=== PATIENT | female | born 1970 | race Hispanic/Latino ===

== ENCOUNTER 2017-10-26 18:18 | Emergency (ER) | payer BC ==
[2017-10-26 21:00] LABS: Absolute Lymphocytes (CBC) 2.8 K/uL (0.7-4.9); Absolute Monocytes 0.5 K/uL (0.1-1.3); Absolute Neutrophil 5.3 K/uL (1.8-8.0); Basophils % 0.6 % (0-1.3); Eosinophils % 3.3 % (0-4.4); Hematocrit 39.6 % (36.0-45.0); Lymphocytes % 31.6 % (15.3-44.8); MCH 29.9 pg (27.0-35.0); MCV 86.6 fL (80-100); MPV 7.7 fL (7.6-11.3); Monocytes % 5.2 % (3.3-12.3); RBC Red Blood Cell Count 4.58 M/uL (3.86-4.86)
[2017-10-26 21:04] LABS: Protime INR 0.98
[2017-10-26 21:09] LABS: Urine Blood NEGATIVE (NEG); Urine Glucose NEGATIVE (NEG); Urine Protein NEGATIVE (NEG); Urine Specific Gravity 1.025 (1.005-1.030)
[2017-10-26 21:09] LABS: Albumin 3.7 g/dL (3.4-5.0); Bilirubin Direct 0.1 mg/dL (0-0.2); Bilirubin Total 0.4 mg/dL (0.2-1.0); CKMB Creatine Kinase MB 1.1 ng/mL (0.3-3.6); Magnesium 2.7 mg/dL (1.8-2.4); Protein, Total 8.2 g/dL (6.4-8.2)
--- NOTE | 2017-10-26 21:14 | RAD REPORT ---
EXAM DESCRIPTION: RAD - Chest Single View - 10/26/2017 8:52 pm CLINICAL HISTORY: CHEST PAIN Chest pain. COMPARISON: CHEST SINGLE VIEW dated 12/20/2011 FINDINGS: Portable technique limits examination quality. The lungs are grossly clear. The heart is normal in size. No displaced fractures. IMPRESSION: No acute intrathoracic process suspected.
[2017-10-26] MEDS ORDERED: KETOROLAC 30 MG/ML INJ ONE (22:24)
--- NOTE | 2017-10-26 22:25 | EDPHYS ---
Physician Documentation [facility] Name: Rossy Grier Age: 47 yrs Sex: Female : 1970 Arrival Date: 10/26/2017 Time: 18:22 Bed 24 Private MD: ED Physician Brijesh Martinez HPI: 10/26 20:16 This 47 yrs old Female presents to ER via Ambulatory with complaints of Back jmm Pain. 20:16 The patient presents with pain that is acute, with no known mechanism of injury. The jmm symptoms are located in the mid back area, left flank and left mid back. Onset: The symptoms/episode began/occurred gradually, 1 day(s) ago. Associated signs and symptoms: Pertinent negatives: fever, vomiting. This is a 47 year old female with a history of htn that presents to the ED with left lateral chest wall pain. The pain does not radiate. Is worsened with deep inspiration. The pain is non exertional. 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 - Social history:: Smoking status: Patient/guardian denies using tobacco. - Ebola Screening: : Patient denies exposure to infectious person Patient denies travel to an Ebola-affected area in the 21 days before illness onset. ROS: 20:16 Constitutional: Negative for fever, chills, and weight loss, Cardiovascular: Negative jmm for chest pain, palpitations, and edema, Respiratory: Negative for shortness of breath, cough, wheezing, and pleuritic chest pain. 20:16 : Negative for injury, bleeding, discharge, and swelling, MS/Extremity: Negative for injury and deformity, Skin: Negative for injury, rash, and discoloration, Neuro: Negative for headache, weakness, numbness, tingling, and seizure. 20:16 Back: Positive for flank pain, on the left. 20:16 All other systems are negative. Exam: 20:16 Constitutional: This is a well developed, well nourished patient who is awake, alert, jmm and in no acute distress. Head/Face: atraumatic. 20:16 Chest/axilla: Inspection: normal. 20:16 Cardiovascular: Rate: normal, Rhythm: regular. 20:16 Respiratory: the patient does not display signs of respiratory distress, Respirations: normal, Breath sounds: are clear throughout. 20:16 Abdomen/GI: Inspection: abdomen appears normal, Bowel sounds: normal, Palpation: abdomen is soft and non-tender, in all quadrants. 20:16 Back: CVA tenderness, is absent, pain is localized lateral to the left scapula. 20:16 Musculoskeletal/extremity: ROM: intact in all extremities. 20:16 Skin: Appearance: Color: normal in color. 20:16 Neuro: Orientation: is normal, Mentation: is normal, Memory: is normal, Gait: is steady. 20:16 Psych: Behavior/mood is pleasant, cooperative, anxious. 20:50 ECG was reviewed by the Attending Physician. [facility] Vital Signs: 18:27 BP 158 / 97; Pulse 76; Resp 18; Temp 98.9(TE); Pulse Ox 97% on R/A; Weight 79.83 kg tw2 (R); Height 5 ft. 2 in. (157.48 cm); Pain 7/10; 21:08 BP 138 / 75; Pulse 72; Resp 15; Pulse Ox 97% on R/A; Pain 6/10; ed1 21:45 BP 120 / 78; Pulse 70; Resp 18; Pulse Ox 98% on R/A; Pain 6/10; ed1 22:30 BP 129 / 82; Pulse 73; Resp 17; Pulse Ox 100% on R/A; Pain 2/10; ed1 18:27 Body Mass Index 32.19 (79.83 kg, 157.48 cm) tw2 MDM: 20:14 Patient medically screened. [facility] 22:18 Data reviewed: vital signs, nurses notes. Counseling: I had a detailed discussion with [facility] the patient and/or guardian regarding: the historical points, exam findings, and any diagnostic results supporting the discharge/admit diagnosis, radiology results, the need for outpatient follow up, to return to the emergency department if symptoms worsen or persist or if there are any questions or concerns that arise at home. 22:26 ED course: HEART SCORE = 0 . ED course: D-DIMER NORMAL. ED course: Symptoms appear more jmm likely musculoskeletal. Patient has low likelihood of ACS, Vital signs normal. D-Dimer normal. I do not suspect PE. Patient given strict return precautions for chest pain, shortness of breath, fever, ect. Patient understood and agrees with the plan of care. . 10/26 20:14 Order name: Basic Metabolic Panel [facility] 10/26 20:14 Order name: CBC with Diff; Complete Time: 21:16 [facility] 10/26 20:14 Order name: Ckmb; Complete Time: 21:16 [facility] 10/26 20:14 Order name: CPK; Complete Time: 21:16 [facility] 10/26 20:14 Order name: LFT's; Complete Time: 21:16 [facility] 10/26 20:14 Order name: Magnesium; Complete Time: 21:16 [facility] 10/26 20:14 Order name: NT PRO-BNP; Complete Time: 21:16 [facility] 10/26 20:14 Order name: PT-INR; Complete Time: 21:16 [facility] 10/26 20:14 Order name: Ptt, Activated; Complete Time: 21:16 [facility] 10/26 20:14 Order name: Troponin (emerg Dept Use Only); Complete Time: 21:16 [facility] 10/26 20:14 Order name: Lipase; Complete Time: 21:16 [facility] 10/26 20:15 Order name: Basic Metabolic Panel; Complete Time: 21:16 [facility] 10/26 20:37 Order name: Urine Dipstick--Ancillary (enter results); Complete Time: 21:16 ks 10/26 20:37 Order name: Urine --Ancillary (enter results); Complete Time: 21:16 ks 10/26 20:14 Order name: XRAY Chest (1 view); Complete Time: 21:16 [facility] 10/26 20:14 Order name: EKG; Complete Time: 20:15 [facility] 10/26 20:14 Order name: Cardiac monitoring; Complete Time: 20:30 [facility] 10/26 20:14 Order name: EKG - Nurse/Tech; Complete Time: 20:44 [facility] 10/26 20:14 Order name: IV Saline Lock; Complete Time: 20:44 [facility] 10/26 20:14 Order name: Labs collected and sent; Complete Time: 20:45 [facility] 10/26 20:14 Order name: O2 Per Protocol; Complete Time: 20:30 jm 10/26 20:14 Order name: O2 Sat Monitoring; Complete Time: 20:30 [facility] 10/26 20:14 Order name: Urine Dipstick-Ancillary (obtain specimen); Complete Time: 20:29 [facility] 10/26 21:52 Order name: D-Dimer; Complete Time: 22:17 jmm EC:50 Rate is 69 beats/min. Rhythm is regular. QRS [place] is Normal. [place] interval is normal. QRS jmm interval is normal. QT interval is normal. T waves are Normal. No ST changes noted. Interpreted by me. Administered Medications: 22:24 Drug: Ketorolac 30 mg Route: IVP; Site: right forearm; bb 22:31 Follow up: Response: No adverse reaction; Pain is decreased ed1 Disposition: 10/27 07:26 Co-signature as Attending Physician, Brijesh Martinez MD I agree with the assessment and [facility] plan of care. Disposition: 10/26/17 22:24 Discharged to Home. Impression: Thoracic Strain. - Condition is Stable. - Discharge Instructions: Thoracic Strain. - Prescriptions for Ibuprofen 800 mg Oral Tablet - take 1 tablet by ORAL route every 12 hours As needed take with food; 20 tablet. orphenadrine citrate 100 mg Oral Tablet Sustained Release - take 1 tablet by ORAL route 2 times per day As needed; 20 tablet. - Medication Reconciliation Form, Thank You Letter, Antibiotic Education, Prescription Opioid Use form. - Follow up: Private Physician; When: 2 - 3 days; Reason: Recheck today's complaints, Continuance of care, Re-evaluation by your physician. Signatures: Dispatcher [employer] EDBrijesh Isabel MD MD cha Mickail, Joel, PA PA jmm Ballard, Brenda, RN RN bb Laura Marie, CUSTOMER EXPERIENCE ASSOCIATE CUSTOMER EXPERIENCE ASSOCIATE ed1 Elodia Asher RN RN tw2 Corrections: (The following items were deleted from the chart) 10/26 22:31 22:24 10/26/2017 22:24 Discharged to Home. Impression: Thoracic Strain. Condition is ed1 Stable. Forms are Medication Reconciliation Form, Thank You Letter, Antibiotic Education, Prescription Opioid Use. Follow up: Private Physician; When: 2 - 3 days; Reason: Recheck today's complaints, Continuance of care, Re-evaluation by your physician. cherie
--- NOTE | 2017-10-26 22:25 | ER ---
Nurse's Notes [facility] Name: Rossy Grier Age: 47 yrs Sex: Female : 1970 Arrival Date: 10/26/2017 Time: 18:22 Bed 24 Private MD: Diagnosis: Thoracic Strain Presentation: 10/26 18:26 Presenting complaint: Patient states: i have a pain on my left side and radiates to my tw2 back, my rib area when i breathe it hurts. Transition of care: patient was not received from another setting of care. Onset of symptoms was October 26, 2017. Risk Assessment: Do you want to hurt yourself or someone else? Patient reports no desire to harm self or others. Initial Sepsis Screen: Does the patient meet any 2 criteria? No. Patient's initial sepsis screen is negative. Does the patient have a suspected source of infection? No. Patient's initial sepsis screen is negative. Care prior to arrival: None. 18:26 Method Of Arrival: Ambulatory tw2 18:29 Acuity: MAMIE 3 tw2 Triage Assessment: 18:40 General: Appears in no apparent distress. well groomed, Behavior is calm, cooperative, tw2 appropriate for age. Pain: Complains of pain in LEFT rib area and back. Cardiovascular: Denies chest pain, shortness of breath, Patient's skin is warm and dry. Respiratory: Airway is patent Respiratory effort is even, unlabored, Respiratory pattern is regular, symmetrical. 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 - Social history:: Smoking status: Patient/guardian denies using tobacco. - Ebola Screening: : Patient denies exposure to infectious person Patient denies travel to an Ebola-affected area in the 21 days before illness onset. Screenin:41 Abuse screen: Denies threats or abuse. Nutritional screening: No deficits noted. tw2 Tuberculosis screening: No symptoms or risk factors identified. Fall Risk None identified. Assessment: 19:46 General: Appears uncomfortable, Behavior is calm, cooperative. Pain: Complains of pain ed1 in left lateral anterior chest Pain radiates to back Pain currently is 7 out of 10 on a pain scale. Quality of pain is described as aching, sharp, Pain began 1 day ago. Is continuous. Neuro: Level of Consciousness is awake, alert, obeys commands, Oriented to person, place, time, situation. Cardiovascular: Denies chest pain, Heart tones S1 S2 present. Respiratory: Airway is patent Respiratory effort is even, unlabored, Respiratory pattern is regular, symmetrical, Breath sounds are clear bilaterally. GI: No signs and/or symptoms were reported involving the gastrointestinal system. : No signs and/or symptoms were reported regarding the genitourinary system. EENT: No signs and/or symptoms were reported regarding the EENT system. Derm: Skin is intact, is healthy with good turgor, Skin is dry, Skin is normal, Skin temperature is warm. Musculoskeletal: Circulation, motion, and sensation intact. 20:00 Reassessment: I agree with this assessment. bb 21:08 Reassessment: Patient appears in no apparent distress at this time. No changes from ed1 previously documented assessment. Patient and/or family updated on plan of care and expected duration. Pain level reassessed. Patient is alert, oriented x 3, equal unlabored respirations, skin warm/dry/pink. Patient states symptoms have not improved. 21:45 Reassessment: Patient appears in no apparent distress at this time. No changes from ed1 previously documented assessment. Patient and/or family updated on plan of care and expected duration. Pain level reassessed. Patient is alert, oriented x 3, equal unlabored respirations, skin warm/dry/pink. Patient states symptoms have not improved. 22:30 Reassessment: Patient appears in no apparent distress at this time. Patient and/or ed1 family updated on plan of care and expected duration. Pain level reassessed. Patient is alert, oriented x 3, equal unlabored respirations, skin warm/dry/pink. Patient states feeling better. Patient states symptoms have improved. Vital Signs: 18:27 BP 158 / 97; Pulse 76; Resp 18; Temp 98.9(TE); Pulse Ox 97% on R/A; Weight 79.83 kg tw2 (R); Height 5 ft. 2 in. (157.48 cm); Pain 7/10; 21:08 BP 138 / 75; Pulse 72; Resp 15; Pulse Ox 97% on R/A; Pain 6/10; ed1 21:45 BP 120 / 78; Pulse 70; Resp 18; Pulse Ox 98% on R/A; Pain 6/10; ed1 22:30 BP 129 / 82; Pulse 73; Resp 17; Pulse Ox 100% on R/A; Pain 2/10; ed1 18:27 Body Mass Index 32.19 (79.83 kg, 157.48 cm) tw2 ED Course: 18:22 Patient arrived in ED. sb2 18:28 Arm band placed on. tw2 18:30 Triage completed. tw2 19:40 Laura Marie LVN is Primary Nurse. ed1 19:46 Awaiting ED provider evaluation. ed1 19:46 Patient has correct armband on for positive identification. Bed in low position. Call ed1 light in reach. 20:08 Marvin Godinez PA is PHCP. cherie 20:08 Brijesh Martinez MD is Attending Physician. [facility] 20:25 Urine collected: clean catch specimen, clear, lucretia colored. jp3 20:40 Initial lab(s) drawn, by nv, sent to lab. Inserted saline lock: 22 gauge in right jp3 forearm, using aseptic technique. Blood collected. 20:43 Urine --Ancillary (enter results) Sent. jp3 20:43 Urine Dipstick--Ancillary (enter results) Sent. jp3 20:44 Lipase Sent. jp3 20:44 Basic Metabolic Panel Sent. jp3 20:44 Basic Metabolic Panel Sent. jp3 20:44 CBC with Diff Sent. jp3 20:44 Ckmb Sent. jp3 20:44 CPK Sent. jp3 20:44 LFT's Sent. jp3 20:44 Magnesium Sent. jp3 20:44 NT PRO-BNP Sent. jp3 20:44 PT-INR Sent. jp3 20:44 Ptt, Activated Sent. jp3 20:44 Troponin (emerg Dept Use Only) Sent. jp3 20:50 monitoring and evaluation advisor on. Pulse ox on. NIBP on. jp3 20:50 EKG done, by ED staff, reviewed by Marvin MAYERS. jp3 20:53 XRAY Chest (1 view) In Process Unspecified. EDMS 22:30 No provider procedures requiring assistance completed. IV discontinued, intact, ed1 bleeding controlled, No redness/swelling at site. Pressure dressing applied. Administered Medications: 22:24 Drug: Ketorolac 30 mg Route: IVP; Site: right forearm; bb 22:31 Follow up: Response: No adverse reaction; Pain is decreased ed1 Outcome: 22:24 Discharge ordered by . cherie 22:30 Discharged to home ambulatory. ed1 22:30 Condition: good 22:30 Discharge instructions given to patient, Instructed on discharge instructions, follow up and referral plans. medication usage, Demonstrated understanding of instructions, follow-up care, medications, Prescriptions given X 2. 22:31 Patient left the ED. ed1 Signatures: Dispatcher [employer] EDMS Marvin Godinez PA PA jmm Ballard, Brenda RN RN bb Laura Marie LVN INVESTMENT ACCOUNTING CLERK ed1 Elodia Asher RN RN tw2 Cecilia Kelley sb2 Ricardo Topete jp3 Corrections: (The following items were deleted from the chart) 18:40 18:30 Headache History: Denies prior headaches. tw2 tw2 18:40 18:30 General: Appears in no apparent distress. well groomed, Behavior is calm, tw2 cooperative, appropriate for age, tw2 18:40 18:30 Pain: Pain currently is 7 out of 10 on a pain scale. Pain began 1 day ago. years tw2 ago. tw2
[2017-10-26 23:35] VITALS: TEMP 98.9
[2017-10-26 23:39] VITALS: BP 129/82; O2SAT 100
--- NOTE | 2017-10-27 07:02 | EKG ---
Test Date: 2017-10-26 Test Time: 20:50:45 Panel Edge Sealer: JUVE MEASUREMENT RESULTS: Intervals: Rate: 69 MA: 166 QRSD: 80 QT: 392 QTc: 420 [place]: P: 29 MA: 166 QRS: -21 T: 1 INTERPRETIVE STATEMENTS: Normal sinus rhythm Normal ECG Compared to ECG 12/20/2011 12:47:44 No significant changes Electronically Signed On 10-27-17 07:01:27 CDT by Armand Jesus
== END 2017-10-26 22:31 | disposition home or self-care (01) ==
LOC: ER 18:18
DX: S29.012A Strain of muscle and tendon of back wall of thorax, initial encounter (principal); I10 Essential (primary) hypertension; Z79.82 Long term (current) use of aspirin
CPT/HCPCS: 36415; 71045; 80048; 80076; 81003; 81025; 82550; 82553; 83690; 83735; 83880; 84484; 85025; 85379; 85610; 85730; 93005; 96374; 99285

== ENCOUNTER 2018-12-30 14:37 | Emergency (ER) | payer BC ==
[2018-12-30] MEDS ORDERED: NA CHLORIDE 0.9% 1,000 ML ONE ×2 (15:21→16:08)
[2018-12-30 15:38] LABS: Absolute Lymphocytes (CBC) 2.2 K/uL (0.7-4.9); Basophils % 0.4 % (0-1.3); Hematocrit 36.9 % (36.0-45.0); Lymphocytes % 26.9 % (15.3-44.8); RBC Red Blood Cell Count 4.22 M/uL (3.86-4.86)
[2018-12-30 15:39] LABS: Protime INR 1.04
[2018-12-30 15:55] LABS: ALT/SGPT 40 U/L (12-78); AST/SGOT 22 U/L (15-37); Albumin 3.5 g/dL (3.4-5.0); Alkaline Phosphatase 98 U/L (45-117); BUN Blood Urea Nitrogen 21 mg/dL (7-18); Bicarbonate 24 mmol/L (21-32); Bilirubin Direct 0.1 mg/dL (0-0.2); Bilirubin Total 0.5 mg/dL (0.2-1.0); Glucose Level 155 mg/dL (74-106); Magnesium 2.3 mg/dL (1.8-2.4); NT PRO-BNP 37 pg/mL (<125); Protein, Total 7.5 g/dL (6.4-8.2); Sodium Level 142 mmol/L (136-145); Troponin (Emerg Dept Use Only) < 0.02 ng/mL (0.0-0.045)
--- NOTE | 2018-12-30 17:47 | ER ---
Nurse's Notes [facility] Name: Rossy Grier Age: 48 yrs Sex: Female : 1970 Arrival Date: 12/30/2018 Time: 14:37 Bed 5 Private MD: Unknown, Unknown Diagnosis: Hypotension Presentation: 12/30 14:46 Presenting complaint: Near syncopal episode while sitting on outdoor bench after eating hb at restaurant. Now reports feeling shaky, weak, and sweaty. Transition of care: patient was not received from another setting of care. Onset of symptoms was December 30, 2018. Risk Assessment: Do you want to hurt yourself or someone else? Patient reports no desire to harm self or others. Care prior to arrival: None. 14:46 Method Of Arrival: Ambulatory hb 14:46 Acuity: MAMIE 2 hb 15:00 Initial Sepsis Screen: Does the patient meet any 2 criteria? Systolic BP < 90 mmHg. aa5 Does the patient have a suspected source of infection? No. Patient's initial sepsis screen is negative. Historical: - Allergies: 14:49 No Known Allergies; hb - Home Meds: 14:49 aspirin 81 mg Oral chew 1 tab once daily [Active]; lisinopril 10 mg Oral tab 1 tab once hb daily [Active]; - PMHx: 14:49 Hypertension; hb - PSHx: 14:49 None; hb - Ebola Screening: : No symptoms or risks identified at this time. Screenin:00 Abuse screen: Denies threats or abuse. Nutritional screening: No deficits noted. aa5 Tuberculosis screening: No symptoms or risk factors identified. Fall Risk None identified. Assessment: 15:00 General: Appears uncomfortable, Behavior is calm, cooperative. Pain: Denies pain. aa5 Neuro: Level of Consciousness is awake, alert, obeys commands, Oriented to person, place, time, situation, Appropriate for age Chief Airport Guide are equal bilaterally Moves all extremities. Speech is normal, Facial symmetry appears normal, Pupils are PERRLA, Reports dizziness, . Cardiovascular: Reports lightheadedness, Heart tones S1 S2 present Rhythm is sinus rhythm. Respiratory: Airway is patent Respiratory effort is even, unlabored, Respiratory pattern is regular, symmetrical, Breath sounds are clear bilaterally. GI: Abdomen is round non-distended, Bowel sounds present X 4 quads. Abd is soft and non tender X 4 quads. Patient currently denies diarrhea, nausea, vomiting. : No signs and/or symptoms were reported regarding the genitourinary system. EENT: No signs and/or symptoms were reported regarding the EENT system. Derm: Skin is pink, warm \T\ dry. Musculoskeletal: Range of motion: intact in all extremities. 15:25 Reassessment: Patient is alert, oriented x 3, equal unlabored respirations, skin aa5 warm/dry/pink. Pt sitting up in bed, pt's family at bedside. Pt notified of wait time for lab results, pt verbalized understanding. . 16:32 Reassessment: Patient is alert, oriented x 3, equal unlabored respirations, skin aa5 warm/dry/pink. Patient states feeling better. Pt currently denies dizziness, denies feeling lightheaded . 17:40 Reassessment: Patient is alert, oriented x 3, equal unlabored respirations, skin aa5 warm/dry/pink. Patient states feeling better. Pt denies any complaints at this time. Pt assisted to restroom via wheelchair. Pt placed back in bed. PA at bedside. . 17:55 Reassessment: Patient is alert, oriented x 3, equal unlabored respirations, skin aa5 warm/dry/pink. Patient states feeling better. Vital Signs: 14:47 BP 87 / 61; Pulse 68; Resp 16; Temp 97.7(O); Pulse Ox 92% on R/A; Weight 78.93 kg; hb Height 5 ft. 2 in. (157.48 cm); Pain 0/10; 14:55 BP 93 / 57; Pulse 73; Resp 16 S; Pulse Ox 94% on R/A; aa5 15:00 BP 86 / 58; Pulse 73; Resp 16 S; Pulse Ox 94% on R/A; aa5 15:20 BP 86 / 54; Pulse 76; Resp 16 S; Pulse Ox 95% on R/A; aa5 15:40 BP 83 / 50; Pulse 71; Resp 16 S; Pulse Ox 97% on R/A; aa5 16:02 BP 90 / 58; Pulse 70; Resp 16 S; Pulse Ox 100% on R/A; aa5 16:32 BP 95 / 60; Pulse 75; Resp 16 S; Pulse Ox 100% on R/A; Pain 0/10; aa5 16:42 BP 100 / 66; Pulse 73; Resp 16 S; Pulse Ox 100% on R/A; aa5 17:00 BP 101 / 67; Pulse 75; Resp 16 S; Pulse Ox 100% on R/A; aa5 17:25 BP 104 / 67; Pulse 74; Resp 16 S; Pulse Ox 99% on R/A; aa5 17:33 BP 105 / 63 Supine; Pulse 78; aa5 17:35 BP 111 / 69 Sitting; Pulse 80; aa5 17:37 BP 109 / 67 Standing; Pulse 83; aa5 14:47 Body Mass Index 31.82 (78.93 kg, 157.48 cm) hb ED Course: 14:37 Patient arrived in ED. ag5 14:38 Unknown, Unknown is Private Physician. ag5 14:47 Triage completed. hb 14:48 Arm band placed on. hb 15:00 Patient has correct armband on for positive identification. Placed in gown. Bed in low aa5 position. Call light in reach. Side rails up X2. radiation monitor on. Pulse ox on. NIBP on. 15:00 EKG done, by ED staff, reviewed by Yakov Puga MD. aa5 15:02 Radha Hayden, GÓMEZ is Primary Nurse. aa5 15:06 Fox Resendiz PA is PHCP. jr8 15:06 Yakov Puga MD is Attending Physician. jr8 15:17 Inserted saline lock: 20 gauge in right antecubital area, using aseptic technique. aa5 Blood collected. 15:17 Initial lab(s) drawn, by fl, sent to lab. aa5 17:55 No provider procedures requiring assistance completed. IV discontinued, intact, aa5 bleeding controlled, No redness/swelling at site. Pressure dressing applied. Administered Medications: 15:24 Drug: NS 0.9% 1000 ml Route: IV; Rate: 1000 ml; Site: right antecubital; aa5 16:31 Follow up: IV Status: Completed infusion; IV Intake: 1000ml aa5 16:13 Drug: NS 0.9% 1000 ml Route: IV; Rate: 1000 ml; Site: right antecubital; aa5 17:30 Follow up: IV Status: Completed infusion; IV Intake: 1000ml aa5 Intake: 16:31 IV: 1000ml; Total: 1000ml. aa5 17:30 IV: 1000ml; Total: 2000ml. aa5 Outcome: 17:47 Discharge ordered by MD. barros 17:55 Discharged to home ambulatory, with family. aa5 17:55 Condition: improved 17:55 Discharge instructions given to patient, Instructed on discharge instructions, follow up and referral plans. Demonstrated understanding of instructions, follow-up care. 17:59 Patient left the ED. aa5 Signatures: aRdha Hayden RN RN aa5 Fox Resendiz PA PA jr8 Destinee Dominique RN RN Nina Montes ag5 Corrections: (The following items were deleted from the chart) 14:54 14:46 Presenting complaint: Near syncopal episode while standing in restaurant. Now hb reports feeling shaky, weak, and sweaty. 16:32 16:32 Reassessment: Patient is alert, oriented x 3, equal unlabored respirations, skin aa5 warm/dry/pink. Patient states feeling better. aa5
--- NOTE | 2018-12-30 17:47 | EDPHYS ---
Physician Documentation [facility] Name: Rossy Grier Age: 48 yrs Sex: Female : 1970 Arrival Date: 12/30/2018 Time: 14:37 Bed 5 Private MD: Unknown, Unknown ED Physician Yakov Puga HPI: 12/30 15:24 This 48 yrs old Female presents to ER via Ambulatory with complaints of Feels jr8 Faint. 15:24 Hypotension, near syncope. Onset: The symptoms/episode began/occurred today. Severity jr8 of symptoms: At their worst the symptoms were moderate. Pt was outside and began to feel faint, upon denies chest pain, SOB, or any pain complaints. Pt hypotensive upon arrival to ED. In no distress. Historical: - Allergies: 14:49 No Known Allergies; hb - Home Meds: 14:49 aspirin 81 mg Oral chew 1 tab once daily [Active]; lisinopril 10 mg Oral tab 1 tab once hb daily [Active]; - PMHx: 14:49 Hypertension; hb - PSHx: 14:49 None; hb - Ebola Screening: : No symptoms or risks identified at this time. ROS: 15:25 Constitutional: Negative for fever, chills, and weight loss, Eyes: Negative for injury, jr8 pain, redness, and discharge, ENT: Negative for injury, pain, and discharge, Neck: Negative for injury, pain, and swelling, Cardiovascular: Negative for chest pain, palpitations, and edema, Respiratory: Negative for shortness of breath, cough, wheezing, and pleuritic chest pain, Abdomen/GI: Negative for abdominal pain, nausea, vomiting, diarrhea, and constipation, Back: Negative for injury and pain, MS/Extremity: Negative for injury and deformity, Neuro: Negative for headache, weakness, numbness, tingling, and seizure. Exam: 15:25 Constitutional: This is a well developed, well nourished patient who is awake, alert, jr8 and in no acute distress. Head/Face: Normocephalic, atraumatic. Eyes: Pupils equal round and reactive to light, extra-ocular motions intact. Lids and lashes normal. Conjunctiva and sclera are non-icteric and not injected. Cornea within normal limits. Periorbital areas with no swelling, redness, or edema. ENT: Nares patent. No nasal discharge, no septal abnormalities noted. Tympanic membranes are normal and external auditory canals are clear. Oropharynx with no redness, swelling, or masses, exudates, or evidence of obstruction, uvula midline. Mucous membranes moist. Neck: Trachea midline, no thyromegaly or masses palpated, and no cervical lymphadenopathy. Supple, full range of motion without nuchal rigidity, or vertebral point tenderness. No Meningismus. Chest/axilla: Normal chest wall appearance and motion. Nontender with no deformity. No lesions are appreciated. Cardiovascular: Regular rate and rhythm with a normal S1 and S2. No gallops, murmurs, or rubs. Normal PMI, no JVD. No pulse deficits. Respiratory: Lungs have equal breath sounds bilaterally, clear to auscultation and percussion. No rales, rhonchi or wheezes noted. No increased work of breathing, no retractions or nasal flaring. Abdomen/GI: Soft, non-tender, with normal bowel sounds. No distension or tympany. No guarding or rebound. No evidence of tenderness throughout. Back: No spinal tenderness. No costovertebral tenderness. Full range of motion. Skin: Warm, dry with normal turgor. Normal color with no rashes, no lesions, and no evidence of cellulitis. Neuro: Awake and alert, GCS 15, oriented to person, place, time, and situation. Cranial nerves II-XII grossly intact. Motor strength 5/5 in all extremities. Sensory grossly intact. Cerebellar exam normal. Normal gait. Vital Signs: 14:47 BP 87 / 61; Pulse 68; Resp 16; Temp 97.7(O); Pulse Ox 92% on R/A; Weight 78.93 kg; hb Height 5 ft. 2 in. (157.48 cm); Pain 0/10; 14:55 BP 93 / 57; Pulse 73; Resp 16 S; Pulse Ox 94% on R/A; aa5 15:00 BP 86 / 58; Pulse 73; Resp 16 S; Pulse Ox 94% on R/A; aa5 15:20 BP 86 / 54; Pulse 76; Resp 16 S; Pulse Ox 95% on R/A; aa5 15:40 BP 83 / 50; Pulse 71; Resp 16 S; Pulse Ox 97% on R/A; aa5 16:02 BP 90 / 58; Pulse 70; Resp 16 S; Pulse Ox 100% on R/A; aa5 16:32 BP 95 / 60; Pulse 75; Resp 16 S; Pulse Ox 100% on R/A; Pain 0/10; aa5 16:42 BP 100 / 66; Pulse 73; Resp 16 S; Pulse Ox 100% on R/A; aa5 17:00 BP 101 / 67; Pulse 75; Resp 16 S; Pulse Ox 100% on R/A; aa5 17:25 BP 104 / 67; Pulse 74; Resp 16 S; Pulse Ox 99% on R/A; aa5 17:33 BP 105 / 63 Supine; Pulse 78; aa5 17:35 BP 111 / 69 Sitting; Pulse 80; aa5 17:37 BP 109 / 67 Standing; Pulse 83; aa5 14:47 Body Mass Index 31.82 (78.93 kg, 157.48 cm) hb MDM: 15:06 Patient medically screened. 8 17:44 Data reviewed: vital signs, nurses notes, lab test result(s), EKG. Data interpreted: jr8 Pulse oximetry: on room air is 99 %. Interpretation: normal. Counseling: I had a detailed discussion with the patient and/or guardian regarding: the historical points, exam findings, and any diagnostic results supporting the discharge/admit diagnosis, lab results, the need for outpatient follow up, a family practitioner, to return to the emergency department if symptoms worsen or persist or if there are any questions or concerns that arise at home. Response to treatment: the patient's symptoms have resolved after treatment, patient is well hydrated. ED course: Discussed with patient that the reason she felt bad was because of her blood pressure. Unfortunately we could not find why her blood pressure dropped. Does not appear to be from her daily medicine or any other pathologic sources. Recommend f/u with PCP. If something were to change or worsen to come back. Patient good with this . 12/30 15:13 Order name: Basic Metabolic Panel; Complete Time: 16:00 8 12/30 15:13 Order name: CBC with Diff; Complete Time: 15:45 8 12/30 15:13 Order name: LFT's; Complete Time: 16:00 8 12/30 15:13 Order name: Magnesium; Complete Time: 16:00 8 12/30 15:13 Order name: NT PRO-BNP; Complete Time: 16:00 12/30 15:13 Order name: PT-INR; Complete Time: 15:45 12/30 15:13 Order name: Troponin (emerg Dept Use Only); Complete Time: 16:00 12/30 15:13 Order name: EKG; Complete Time: 15:13 12/30 15:13 Order name: Cardiac monitoring; Complete Time: :12/30 15:13 Order name: EKG - Nurse/Tech; Complete Time: :20 12/30 15:13 Order name: IV Saline Lock; Complete Time: :20 12/30 15:13 Order name: Labs collected and sent; Complete Time: :12/30 15:13 Order name: O2 Per Protocol; Complete Time: :20 12/30 15:13 Order name: O2 Sat Monitoring; Complete Time: :12/30 15:13 Order name: Orthostatic Blood Pressure; Complete Time: 17:44 Administered Medications: 15:24 Drug: NS 0.9% 1000 ml Route: IV; Rate: 1000 ml; Site: right antecubital; aa5 16:31 Follow up: IV Status: Completed infusion; IV Intake: 1000ml aa5 16:13 Drug: NS 0.9% 1000 ml Route: IV; Rate: 1000 ml; Site: right antecubital; aa5 17:30 Follow up: IV Status: Completed infusion; IV Intake: 1000ml aa5 Disposition: 12/30/18 17:47 Discharged to Home. Impression: Hypotension. - Condition is Stable. - Discharge Instructions: Hypotension. - Medication Reconciliation Form, Thank You Letter, Antibiotic Education, Prescription Opioid Use form. - Follow up: Private Physician; When: Tomorrow; Reason: Recheck today's complaints, Continuance of care, Re-evaluation by your physician. - Problem is new. - Symptoms have improved. Signatures: Dispatcher [employer] Radha Kraft, RN RN aa5 Fox Resendiz PA PA jr8 Destinee Dominique RN RN Corrections: (The following items were deleted from the chart) 17:59 17:47 12/30/2018 17:47 Discharged to Home. Impression: Hypotension. Condition is aa5 Stable. Forms are Medication Reconciliation Form, Thank You Letter, Antibiotic Education, Prescription Opioid Use. Follow up: Private Physician; When: Tomorrow; Reason: Recheck today's complaints, Continuance of care, Re-evaluation by your physician. Problem is new. Symptoms have improved. jr8
[2018-12-30 18:04] VITALS: TEMP 97.7
[2018-12-30 18:16] VITALS: O2SAT 99
[2018-12-30 18:19] VITALS: BP 109/67
--- NOTE | 2018-12-31 07:52 | EKG ---
Test Date: 2018-12-30 Test Time: 14:58:52 Rental Clerk: ANNABELLE MEASUREMENT RESULTS: Intervals: Rate: 74 DE: 138 QRSD: 82 QT: 384 QTc: 426 [place]: P: 24 DE: 138 QRS: -21 T: -13 INTERPRETIVE STATEMENTS: Normal sinus rhythm Low voltage QRS Borderline ECG Compared to ECG 10/26/2017 20:50:45 Low QRS voltage now present Electronically Signed On 12-31-18 07:51:54 CDT by Shailesh Gupta
== END 2018-12-30 17:59 | disposition home or self-care (01) ==
LOC: ER 14:37
DX: I95.9 Hypotension, unspecified (principal); I10 Essential (primary) hypertension; Z79.82 Long term (current) use of aspirin
CPT/HCPCS: 96361; 93005; 85025; 80048; 36415; 83735; 85610; 80076; 84484; 83880; 96360; 99284; J7030 ×2